=== PATIENT | male | born 1975 | race Two or more races ===

== ENCOUNTER 2017-11-02 19:34 | Emergency (ER) | payer MEDICAID ==
[~2017-11-02] VITALS: Ht 177.8 cm; Wt 99.8 kg
[2017-11-02 20:47] LABS: Urine Bacteria NONE SEEN /hpf (None Seen); Urine Blood Negative /uL (Negative); Urine Specific Gravity 1.024 (1.001-1.035); Urine WBC <1 /hpf (0 - 3)
[2017-11-02 20:56] LABS: Basophils # (auto) 0 uL; Basophils % (auto) 0.4 % (0.0-2.0); Eosinophils # (auto) 0.1 uL; Eosinophils % (auto) 1.2 % (0.0-7.0); Hematocrit 43.2 % (41.0-53.0); Hemoglobin 14.8 g/dL (13.5-17.5); Lymphocytes # (auto) 2.5 uL; Lymphocytes % (auto) 36.5 % (10.0-50.0); Mean Corpuscular Hemoglobin 29.4 pg (28.0-32.0); Mean Corpuscular Hgb Conc. 34.2 g/dL (32.0-36.0); Mean Corpuscular Volume 85.9 fL (80.0-100.0); Monocytes # (auto) 0.5 uL; Monocytes % (auto) 7.5 % (0.0-12.0); Neutrophils # (auto) 3.8 uL; Neutrophils % (auto) 54.4 % (37.0-80.0); Platelet Count (auto) 270 10^3/uL (140-450); Red Blood Cells 5.03 10^6/uL (4.5-5.90); Red Cell Distribution Width 13.7 % (11.8-14.3); White Blood Cell 6.9 10^3/uL (4.4-10.8)
[2017-11-02 21:11] LABS: INR 0.93 (0.9-1.15); Partial Thromboplastin Time 25.4 sec (23.78-33.04)
[2017-11-02 21:13] LABS: Albumin 3.8 g/dL (3.4-5.0); BUN/Creatinine Ratio 20.9; Calcium 8.5 mg/dL (8.5-10.1); Potassium 3.8 mmol/L (3.5-5.1)
[2017-11-02 21:15] LABS: Bilirubin, Total 0.5 mg/dL (0.2-1.0)
[2017-11-03 02:48] VITALS: BP 139/83
[2017-11-03 03:11] LABS: Bilirubin, Direct 0.1 mg/dL (0-0.2); Bilirubin, Total 0.5 mg/dL (0.2-1.0); Total Protein 7.2 g/dL (6.4-8.2)
== END 2017-11-03 03:12 | disposition home or self-care (01) ==
LOC: ER 19:37
DX: R10.9 Unspecified abdominal pain (principal)
CPT/HCPCS: 36415; 74176; 76870; 80053; 80076; 81001; 82150; 83690; 85025; 85610; 85730